=== PATIENT | male | born 1985 | race Caucasian/White ===

== ENCOUNTER 2020-08-17 05:28 | Emergency (ER) | payer MEDICAID, SELFPAY ==
[2020-08-17 05:45] VITALS: BP 127/56; PULSE 116; RESP 18; TEMP 37.1; O2SAT 94; BMI 23.5
[2020-08-17 06:12] LABS: Basophils # 0.1 K/mm3 (0-0.2); Basophils % 0.7 % (0.1-2.0); Eosinophils # 0.1 K/mm3 (0.0-0.4); Eosinophils % 1.1 % (0.1-12.0); Hematocrit 46.1 % (42.0-52.0); Hemoglobin 15.3 g/dL (14.1-18.0); Lymphocytes # 0.8 K/mm3 (0.7-4.5); Mean Corpuscular HGB Conc 33.2 g/dL (31.8-35.4); Mean Corpuscular Hemoglobin 31.7 pg (27.0-31.2); Mean Corpuscular Volume 95.6 fl (80-94); Mean Platelet Volume 8.4 fl (7.4-10.4); Monocytes # 0.9 K/mm3 (0.1-1.0); Monocytes % 8.4 % (1.7-9.3); Neutrophils # 8.4 K/mm3 (1.8-7.8); Neutrophils % 81.7 % (37.0-80.0); Platelet Count 237 K/mm3 (142-424); Red Blood Count 4.83 M/mm3 (4.60-6.20); Red Cell Distribution Width 13.1 % (11.5-17.5); White Blood Count 10.3 K/mm3 (4.8-10.8)
[2020-08-17 06:28] LABS: Chloride 95 mmol/L (98-107)
[2020-08-17 06:29] LABS: Potassium 3.4 mmoL/L (3.5-5.1); Sodium 132 mmol/L (136-145)
[2020-08-17 06:31] LABS: Alanine Aminotransferase 30 U/L (12-78); Alkaline Phosphatase 93 U/L (38-126); Anion Gap 11.4 mEq/L (5-15); Aspartate Amino Transferase 50 U/L (17-59); Bilirubin,Total 0.5 mg/dl (0.2-1.3); Blood Urea Nitrogen 13 mg/dl (9-20); Carbon Dioxide 29 mmol/L (22.0-30.0); Creatinine Clearance Estimated 98 mL/min (50-200); Estimated Glomerular Filt Rate 85 ml/min (>60); GFR (African American) 102 ML/MIN (>60)
[2020-08-17 06:32] LABS: Albumin Level 4.6 g/dl (3.5-5.0); Albumin/Globulin Ratio 1.5 (1.1-1.8); Globulin 3.1 g/dL (1.3-3.2); Glucose 128 mg/dl (74-100); Lactic Acid 0.9 mmol/L (0.7-2.1); Total Protein,Serum 7.7 g/dl (6.3-8.2)
[2020-08-17 06:37] LABS: C-Reactive Protein 77.4 mg/L (0-4)
--- NOTE | 2020-08-17 06:55 | [facility].EDSKAF ---
ED Disposition Clinical Impression: Cellulitis Qualifiers: Site of cellulitis: extremity Site of cellulitis of extremity: upper extremity Laterality: unspecified laterality Qualified Code(s): L03.119 - Cellulitis of unspecified part of limb Disposition: Home, Self-Care Condition on Discharge: Good Instructions: DI for Skin Abscess Additional Instructions: use meds and see pcp for follow up Prescriptions: Sulfamethoxazole/Trimethoprim [Bactrim DS tablet] 1 each PO BID #14 tab Transmission Status: Pending to [facility] cephALEXin [cephALEXin 500mg capsule*] 500 mg PO TID #30 cap Transmission Status: Pending to [facility] Referrals: PCP,No [Primary Care Provider] - - Critical Care Critical Care Time: No Attestation: On 08/17/20, the high probability of a clinically significant, sudden or life threatening deterioration of the following system(s) required my full and direct attention, intervention and personal management. The time I documented below is in addition to time spent performing reported procedures but includes the following listed in this critical care notation. Medical Decision Making - Medical Records Medical records reviewed: Yes: I reviewed the patient's medical records. - Saulo Inquiry Pt receiving controlled substance: No Vital Signs: 08/17/20 05:45 Temperature 98.8 F Temperature Source Oral Pulse Rate [Right] 116 H Respiratory Rate 18 Blood Pressure [Right Arm] 127/56 L Blood Pressure Mean [Right Arm] 79 Blood Pressure Source [Right Arm] Automatic Cuff Blood Pressure Position [Right Arm] Sitting 02 Sat by Pulse Oximetry 94 L Oxygen Delivery Method Room Air - Lab Data Lab results reviewed: Yes: I reviewed the patient's lab results. Lab Results 08/17/20 05:58: WBC 10.3, RBC 4.83, Hgb 15.3, Hct 46.1, MCV 95.6 H, MCH 31.7 H, MCHC 33.2, RDW 13.1, Plt Count 237, MPV 8.4, Neut % (Auto) 81.7 H, Lymph % (Auto) 8.0 L, [place] % (Auto) 8.4, Eos % (Auto) 1.1, Baso % (Auto) 0.7, Neut # (Auto) 8.4 H, Lymph # (Auto) 0.8, [place] # (Auto) 0.9, Eos # (Auto) 0.1, Baso # (Auto) 0.1 08/17/20 05:58: Sodium 132 L, Potassium 3.4 L, Chloride 95 L, Carbon Dioxide 29, Anion Gap 11.4, BUN 13, Creatinine 1.00, Estimated Creat Clear 98, Estimated GFR 85, Est GFR ( Amer) 102, Glucose 128 H, Calcium 9.0, Total Bilirubin 0.5, AST 50, ALT 30, Alkaline Phosphatase 93, C-Reactive Protein 77.4 H, Total Protein 7.7, Albumin 4.6, Globulin 3.1, Albumin/Globulin Ratio 1.5 08/17/20 05:58: Lactate 0.9 Result diagrams: 08/17/20 05:58 08/17/20 05:58 Orders (Tests/Meds): ED MEDICATIONS Generic Name Dose Route Start Last Admin Trade Name Freq PRN Reason Stop Dose Admin Sodium Chloride 1,000 mls @ 999 mls/hr 08/17/20 06:15 08/17/20 06:23 Sod Chlor 0.9% 1000ml Bag IV 08/17/20 07:15 999 mls/hr .Q1H1M ARTURO Administration Ceftriaxone Sodium 1 gm/ 50 mls @ 100 mls/hr 08/17/20 07:00 Sodium Chloride IV 08/31/20 06:59 Q24H ARTURO Protocol Discontinued Medications Generic Name Dose Route Start Last Admin Trade Name Freq PRN Reason Stop Dose Admin Ketorolac Tromethamine 30 mg 08/17/20 06:15 08/17/20 06:22 Ketorolac 30mg/Ml Vial IV 08/17/20 06:16 30 mg ONCE ONE Administration Methylprednisolone Sodium Succinate 125 mg 08/17/20 06:49 Methylprednisolone Sod Succ 125mg Vial IV 08/17/20 06:50 ONCE ONE ORDERS Category Date Time Status C-Reactive Protein Stat Lab 08/17/20 05:58 Results Complete Blood Count Auto Diff Stat Lab 08/17/20 05:58 Results Comprehensive Metabolic Panel Stat Lab 08/17/20 05:58 Results Erythrocyte Sedimentation Rate Stat Lab 08/17/20 05:58 Results Procalcitonin Stat Lab 08/17/20 05:58 Results Blood Culture Stat Micro 08/17/20 05:58 Received Medical Decision Narrative: pt with no abscess and will treat as skin infection and ask pt to see pcp Skin/Abscess/FB HPI - General Chief complaint: Skin/Abscess/Foreign
[2020-08-17 07:03] LABS: Procalcitonin 0.158 ng/mL (0.0-2.0)
[2020-08-17 07:04] LABS: Erythrocyte Sedimentation Rate 10 mm/hr (0-15)
[2020-08-17 07:18] VITALS: BP 130/74; PULSE 98; RESP 16; TEMP 36.6; O2SAT 95
== END 2020-08-17 07:22 | disposition home or self-care (01) ==
PROVIDERS: Emergency Provider Emergency Medicine
DX: L03.114 Cellulitis of left upper limb (principal); L03.113 Cellulitis of right upper limb; Z88.0 Allergy status to penicillin; F17.210 Nicotine dependence, cigarettes, uncomplicated
CPT/HCPCS: 80053; 83605; 84145; 85025; 85651; 86140; 87040; 90471; 90714; 96365; 96367; 96375; 99283

== ENCOUNTER 2021-03-31 16:01 | Emergency (ER) | payer MEDICAID, SELFPAY ==
[2021-03-31 16:02] VITALS: BP 180/111; PULSE 60; RESP 18; TEMP 36.5; O2SAT 100; BMI 22.6
--- NOTE | 2021-03-31 16:23 | CT_ITS ---
PROCEDURE INFORMATION: Exam: CT Abdomen And Pelvis Without Contrast Exam date and time: 03/31/2021 4:23 PM Age: 36 years old Clinical indication: Other: Right flank pain; Patient HX: Right sided flank pain - possible stone TECHNIQUE: Imaging protocol: Computed tomography of the abdomen and pelvis without contrast. Radiation optimization: All CT scans at this facility use at least one of these dose optimization techniques: automated exposure control; mA and/or kV adjustment per patient size (includes targeted exams where dose is matched to clinical indication); or iterative reconstruction. COMPARISON: No relevant prior studies available. FINDINGS: Lungs: The lung bases are unremarkable. Liver: Normal. No mass. Gallbladder and bile ducts: Normal. No calcified stones. No ductal dilation. Pancreas: Normal. No ductal dilation. Spleen: Normal. No splenomegaly. Adrenal glands: Normal. No mass. Kidneys and ureters: There is a punctate calcification lower pole right kidney. There is mild right hydronephrosis and hydroureter. No calculus is seen in the ureter however there is a 3.6 mm calculus in the dependent portion of the urinary bladder in the midline which may represent a recently passed stone. Stomach and bowel: Unremarkable. No obstruction. No mucosal thickening. Appendix: No evidence of appendicitis. Intraperitoneal space: Unremarkable. No free air. No significant fluid collection. Vasculature: Unremarkable. No abdominal aortic aneurysm. Lymph nodes: Unremarkable. No enlarged lymph nodes. Urinary bladder: See Kidneys and ureters finding. Reproductive: Unremarkable as visualized. Bones/joints: Unremarkable. No acute fracture. Soft tissues: Unremarkable. IMPRESSION: There is mild right hydronephrosis and hydroureter which may be due to a recently passed calculus since a 3.6 mm stone is seen in the dependent portion of the urinary bladder.
[2021-03-31 16:27] LABS: Microscopic, Urine URINE MICROSCOPIC (MICROSCOPIC)
[2021-03-31 16:31] LABS: Basophils # 0.1 K/mm3 (0-0.2); Basophils % 0.7 % (0.1-2.0); Eosinophils # 0.4 K/mm3 (0.0-0.4); Eosinophils % 2.7 % (0.1-12.0); Hematocrit 45.6 % (42.0-52.0); Hemoglobin 15.2 g/dL (14.1-18.0); Lymphocytes # 2.1 K/mm3 (0.7-4.5); Mean Corpuscular HGB Conc 33.3 g/dL (31.8-35.4); Mean Corpuscular Hemoglobin 32.7 pg (27.0-31.2); Mean Corpuscular Volume 98.1 fl (80-94); Mean Platelet Volume 8.1 fl (7.4-10.4); Monocytes # 0.7 K/mm3 (0.1-1.0); Monocytes % 5.3 % (1.7-9.3); Neutrophils # 9.9 K/mm3 (1.8-7.8); Neutrophils % 75.2 % (37.0-80.0); Platelet Count 378 K/mm3 (142-424); Red Blood Count 4.64 M/mm3 (4.60-6.20); Red Cell Distribution Width 13.7 % (11.5-17.5); White Blood Count 13.2 K/mm3 (4.8-10.8)
[2021-03-31 16:33] LABS: Appearance,Urine CLOUDY (Clear); Bilirubin,Urine Negative (Negative); Blood, Urine 3+ (Negative); Color,Urine DK YELLOW (Yellow); Glucose,Urine (UA) Negative (Negative); Ketones,Urine Negative (Negative); Leukocyte Esterase,Urine Negative (Negative); Nitrate,Urine Negative (Negative); PH,Urine 5.5 (5.0-8.5); Protein,Urine Negative (Negative); Specific Gravity, Urine >= 1.030 (1.005-1.030); Urobilinogen,Urine 0.2 EU/dl (0.2)
[2021-03-31 16:40] LABS: Alanine Aminotransferase 23 U/L (12-78); Albumin Level 4.3 g/dl (3.5-5.0); Albumin/Globulin Ratio 1.4 (1.1-1.8); Alkaline Phosphatase 75 U/L (38-126); Anion Gap 8.2 mEq/L (5-15); Aspartate Amino Transferase 25 U/L (17-59); Bilirubin,Total 0.4 mg/dl (0.2-1.3); Blood Urea Nitrogen 12 mg/dl (9-20); Calcium 8.9 mg/dl (8.4-10.2); Carbon Dioxide 34 mmol/L (22.0-30.0); Chloride 101 mmol/L (98-107); Creatinine Clearance Estimated 114 mL/min (50-200); Estimated Glomerular Filt Rate 109 ml/min (>60); GFR (African American) 132 ML/MIN (>60); Glucose 116 mg/dl (74-100); Lipase 24 U/L (23-300); Potassium 4.2 mmoL/L (3.5-5.1); Sodium 139 mmol/L (136-145); Total Protein,Serum 7.3 g/dl (6.3-8.2)
--- NOTE | 2021-03-31 16:47 | [facility].EDGENADL ---
ED Disposition Clinical Impression: Right kidney stone Disposition: Home, Self-Care Condition on Discharge: Good Instructions: DI for Kidney Stones Prescriptions: cephALEXin [Cephalexin 500mg Tab] 500 mg PO BID #20 tab Transmission Status: Pending to [facility] Ibuprofen [Ibuprofen 800mg Tablet] 800 mg PO TIDP PRN #20 tab PRN Reason: Moderate Pain Transmission Status: Pending to [facility] Promethazine HCl [Phenergan 25mg tab] 25 mg PO TID PRN #12 tab PRN Reason: Nausea And Vomiting Transmission Status: Pending to [facility] Referrals: Provider,MD Angelo [Primary Care Provider] - Elmer Roberto MD [Staff Physician] - - Critical Care Critical Care Time: No Attestation: On 03/31/21, the high probability of a clinically significant, sudden or life threatening deterioration of the following system(s) required my full and direct attention, intervention and personal management. The time I documented below is in addition to time spent performing reported procedures but includes the following listed in this critical care notation. Medical Decision Making - Medical Records Medical records reviewed: Yes: I reviewed the patient's medical records. - Saulo Inquiry Pt receiving controlled substance: No Vital Signs: 03/31/21 16:02 Temperature 97.7 F Temperature Source Oral Pulse Rate [Left Radial] 60 Respiratory Rate 18 Blood Pressure [Right Arm] 180/111 H Blood Pressure Mean [Right Arm] 134 Blood Pressure Source [Right Arm] Automatic Cuff Blood Pressure Position [Right Arm] Sitting 02 Sat by Pulse Oximetry 100 Oxygen Delivery Method Room Air - Lab Data Lab Results 03/31/21 16:21: Urine Color Dk yellow, Urine Appearance Cloudy, Urine pH 5.5, Ur Specific [place] >= 1.030, Urine Protein Negative, Urine Glucose (UA) Negative, Urine Ketones Negative, Urine Blood 3+, Urine Nitrate Negative, Urine Bilirubin Negative, Urine Urobilinogen 0.2, Ur Leukocyte Esterase Negative, Urine RBC 50-100, Urine WBC 5-10, Calcium Oxalate Crystal 1+, Urine Bacteria 2+ 03/31/21 16:21: WBC 13.2 H, RBC 4.64, Hgb 15.2, Hct 45.6, MCV 98.1 H, MCH 32.7 H, MCHC 33.3, RDW 13.7, Plt Count 378, MPV 8.1, Neut % (Auto) 75.2, Lymph % (Auto) 16.0, [place] % (Auto) 5.3, Eos % (Auto) 2.7, Baso % (Auto) 0.7, Neut # (Auto) 9.9 H, Lymph # (Auto) 2.1, [place] # (Auto) 0.7, Eos # (Auto) 0.4, Baso # (Auto) 0.1 03/31/21 16:21: Sodium 139, Potassium 4.2, Chloride 101, Carbon Dioxide 34 H, Anion Gap 8.2, BUN 12, Creatinine 0.80, Estimated Creat Clear 114, Estimated GFR 109, Est GFR ( Amer) 132, Glucose 116 H, Calcium 8.9, Total Bilirubin 0.4, AST 25, ALT 23, Alkaline Phosphatase 75, Total Protein 7.3, Albumin 4.3, Globulin 3.0, Albumin/Globulin Ratio 1.4 03/31/21 16:21: Lipase 24 Result diagrams: 03/31/21 16:21 03/31/21 16:21 Orders (Tests/Meds): ED MEDICATIONS Generic Name Dose Route Start Last Admin Trade Name Freq PRN Reason Stop Dose Admin Sodium Chloride 1,000 mls @ 999 mls/hr 03/31/21 16:45 03/31/21 16:42 Sod Chlor 0.9% 1000ml Bag IV 03/31/21 17:45 999 mls/hr .Q1H1M ARTURO Administration Discontinued Medications Generic Name Dose Route Start Last Admin Trade Name Freq PRN Reason Stop Dose Admin Ketorolac Tromethamine 30 mg 03/31/21 16:39 03/31/21 16:42 Ketorolac 30mg/Ml Vial IV 03/31/21 16:40 30 mg ONCE ONE Administration Ondansetron HCl 4 mg 03/31/21 16:39 03/31/21 16:42 Ondansetron 4mg/2ml Vial IV 03/31/21 16:40 4 mg ONCE ONE Administration ORDERS Category Date Time Status Urine Culture Stat Micro 03/31/21 16:21 Received - CT Data CT Scan: Abdomen, Pelvis Time Received: 17:[address] Reviewed: Yes: I have reviewed the patient's CT results, I have viewed the radiologist's interpretation Findings Narrative: IMPRESSION: There is mild right hydronephrosis and hydroureter which may be due to a recently passed calculus since a 3.6 mm stone is seen in t
[2021-03-31 16:48] LABS: Bacteria,Urine 2+ /lpf; Calcium Oxalate Crystals,Urine 1+ /lpf; RBC,Urine 50-100 #/hpf (0-3)
[2021-03-31 17:51] VITALS: BP 140/86; PULSE 91; RESP 18; TEMP 36.5; O2SAT 98
== END 2021-03-31 17:52 | disposition home or self-care (01) ==
PROVIDERS: Emergency Provider Emergency Medicine
DX: N13.2 Hydronephrosis with renal and ureteral calculous obstruction (principal); F17.210 Nicotine dependence, cigarettes, uncomplicated
CPT/HCPCS: 74176; 80053; 81001; 83690; 85025; 87086; 96365; 96375; 99283; J2405